=== PATIENT | male | born 1990 | race Native Hawaiian/Other Pacific Islander ===

== ENCOUNTER 2019-01-28 22:15 | Outpatient (CLI) | payer OTHER | END 2019-01-28 22:24 | disposition short-term general hospital (02) | LOC: AMB 22:15 | DX: R10.9 Unspecified abdominal pain (principal); R39.198 Other difficulties with micturition | CPT/HCPCS: A0425; A0427 ==

== ENCOUNTER 2019-01-28 22:34 | Inpatient (IN) | payer OTHER ==
[~2019-01-28] VITALS: Ht 170.2 cm; Wt 100.5 kg
[2019-01-28 22:40] VITALS: BP 131/57; TEMP 98.4
[2019-01-28 22:55] LABS: PLATELET COUNT 278 K/uL (142-355)
[2019-01-28 23:07] LABS: POTASSIUM 3.9 mmol/L (3.6-5.2)
[2019-01-29] VITALS (14 sets, daily range): BP systolic 97–115; BP diastolic 57–69; TEMP 97.4–101; Ht 170.2 cm; Wt 100.5 kg
[2019-01-29 05:08] LABS: PLATELET COUNT 232 K/uL (142-355)
[2019-01-29 05:23] LABS: POTASSIUM 3.6 mmol/L (3.6-5.2)
[2019-01-30] VITALS: BP 103/61; TEMP 98.1
[2019-01-30 04:00] VITALS: BP 99/65; TEMP 98.7
[2019-01-30 05:37] LABS: PLATELET COUNT 200 K/uL (142-355)
[2019-01-30 05:48] LABS: POTASSIUM 3.7 mmol/L (3.6-5.2)
[2019-01-30 08:35] VITALS: BP 109/70; TEMP 98
== END 2019-01-30 11:15 | disposition home or self-care (01) | DRG 340 ==
LOC: ED 22:34 → MED/SURG 01-29 01:45
PROVIDERS: Student in an Organized Health Care Education/Training Program; ADMIT Emergency Medicine
PROC: 0DTJ4ZZ Resection of Appendix, Percutaneous Endoscopic Approach (ICD-10-PCS; principal; 2019-01-29)
DX: K35.32 Acute appendicitis with perforation, localized peritonitis, and gangrene, without abscess (principal); D72.828 Other elevated white blood cell count
CPT/HCPCS: 36415; 80048; 80053; 81000; 82150; 83690; 85027; 93005; 94664; 94760; 96365; 96375; 99284; J0132; J0330; J0696; J1100; J1170; J1644; J1885; J1940; J2001; J2250; J2405; J2543; J2704; J2710; J3010; J3490; Q9963